=== PATIENT | female | born 1945 | race Caucasian/White ===

== ENCOUNTER 2018-03-16 12:00 | Inpatient (IN) | payer OTHER ==
[~2018-03-16] VITALS: Ht 160 cm; Wt 104.3 kg
[~2018-03-16 12:00] MED LIST: CEFADROXIL500 MG PO; LOSARTAN POTASS50 MG PO; PERCOCET 5/3251 TAB PO; XARELTO10 MG PO
[2018-03-25] MEDS ORDERED: ASA-EC81 MG PO (10:02)
[2018-03-25] MEDS ORDERED: GLUCOSA-CHOND-1 EACH PO (10:02)
[2018-03-25] MEDS ORDERED: CALTRATE 600+D1 EAC1 PO (10:03)
[2018-03-26] MEDS ORDERED: ELIQUIS2.5 MG PO (16:36)
[2018-03-26] MEDS ORDERED: CEFADROXIL500 MG PO (16:36)
[2018-03-26] MEDS ORDERED: PERCOCET 5-3251 EACH PO (16:36)
== END 2018-03-26 18:47 | DRG 470 ==
LOC: O/R 03-24 05:50 → SURG 03-24 11:29 → SURH 03-24 12:00 → SURG 03-26 18:47
PROVIDERS: Orthopaedic Surgery
PROC: 0MNP0ZZ Release Left Knee Bursa and Ligament, Open Approach (ICD-10-PCS; 2018-03-24)
PROC: 0SRD0J9 Replacement of Left Knee Joint with Synthetic Substitute, Cemented, Open Approach (ICD-10-PCS; principal; 2018-03-24 14:45)
DX: M17.12 Unilateral primary osteoarthritis, left knee (principal); D62 Acute posthemorrhagic anemia; M81.0 Age-related osteoporosis without current pathological fracture; E66.8 Other obesity; J45.998 Other asthma; I10 Essential (primary) hypertension; Z53.1 Procedure and treatment not carried out because of patient's decision for reasons of belief and group pressure